=== PATIENT | female | born 1990 | race Caucasian/White ===

== ENCOUNTER 2020-08-20 04:23 | Day surgery (SDC) | payer OTHER ==
[2020-08-19 10:42] VITALS: BMI 30.7
[2020-08-20 11:06] VITALS: TEMP 98.1
[2020-08-20 11:49] VITALS: BP 106/76; PULSE 69
== END 2020-08-20 11:48 | disposition home or self-care (01) ==
LOC: JASU-ENDO 04:23
PROVIDERS: ATTEND Internal Medicine Gastroenterology
PROC: 0DB78ZX Excision of Stomach, Pylorus, Via Natural or Artificial Opening Endoscopic, Diagnostic (ICD-10-PCS; principal; 2020-08-20 10:36)
DX: K29.50 Unspecified chronic gastritis without bleeding (principal); K31.89 Other diseases of stomach and duodenum
CPT/HCPCS: 81025; 88305-TC; 88342-TC